=== PATIENT | female | born 1975 | race Caucasian/White ===

== ENCOUNTER 2018-02-14 21:41 | Emergency (ER) | payer SELFPAY ==
[~2018-02-14] VITALS: Ht 170.2 cm; Wt 73.0 kg
[~2018-02-14 21:41] MED LIST: ALBUPOW26; FLUT250M9; LORA-205; METO25TA4; MONT10TA23; RANI25TA; TEMA7.5C11; THEO1CAP3; [UNRECOGNIZED DRUG - OTHER]
[2018-02-14 21:50] VITALS: BP 124/85
[2018-02-14] MEDS ORDERED: ALBUTEROL SULF 2.5 MG/0.5ML(0.5%) NEB SOLN NEB ONE (22:00)
[2018-02-14] MEDS ORDERED: IPRATROPIUM BROM 0.5 MG/2.5ML INH SOL NEB ONE (22:00)
== END 2018-02-14 23:14 | disposition left against medical advice (07) ==
LOC: ER 21:41
DX: J45.909 Unspecified asthma, uncomplicated (principal); Z53.21 Procedure and treatment not carried out due to patient leaving prior to being seen by health care provider
CPT/HCPCS: 94640; 99281; J7611; J7644

== ENCOUNTER 2020-08-30 18:10 | Emergency (ER) | payer SELFPAY ==
[~2020-08-30] VITALS: Ht 170.2 cm; Wt 76.7 kg
[~2020-08-30 18:10] MED LIST changes: +METO25TA36; -METO25TA4
[2020-08-30 19:00] VITALS: BP 128/75
== END 2020-08-30 20:15 | disposition home or self-care (01) ==
LOC: ER 18:10
DX: S20.212A Contusion of left front wall of thorax, initial encounter (principal); J45.909 Unspecified asthma, uncomplicated; I10 Essential (primary) hypertension; Z88.0 Allergy status to penicillin; W10.8XXA Fall (on) (from) other stairs and steps, initial encounter; Y93.89 Activity, other specified; Y92.89 Other specified places as the place of occurrence of the external cause; Y99.8 Other external cause status
CPT/HCPCS: 71046

== ENCOUNTER 2021-03-03 15:48 | Emergency (ER) | payer MEDICAID ==
[~2021-03-03] VITALS: Ht 170.2 cm; Wt 90.7 kg
[2021-03-03 15:49] VITALS: BP 118/74
== END 2021-03-03 23:30 | disposition home or self-care (01) ==
LOC: ER 15:48
DX: S00.03XA Contusion of scalp, initial encounter (principal); R55 Syncope and collapse; X58.XXXA Exposure to other specified factors, initial encounter; Y93.89 Activity, other specified; Y92.89 Other specified places as the place of occurrence of the external cause; Y99.8 Other external cause status
CPT/HCPCS: 70450; 93005

== ENCOUNTER 2021-09-26 05:00 | Emergency (ER) | payer MEDICAID, OTHER ==
[~2021-09-26] VITALS: Ht 170.2 cm; Wt 75.0 kg
[2021-09-26 05:00] VITALS: BP 110/70
[2021-09-26] MEDS ORDERED: IPRATROPIUM BROM 0.5 MG/2.5ML INH SOL NEB ONE ×2 (05:15→07:00)
[2021-09-26] MEDS ORDERED: ALBUTEROL SULF 2.5 MG/0.5ML(0.5%) NEB SOLN NEB ONE ×2 (05:15→07:00)
[2021-09-26] MEDS ORDERED: methylPREDNISolone SOD SUCC 125 MG/2 ML VL IM ONE (07:00)
[2021-09-26] MEDS ORDERED: PRED20TA2 PO (07:42)
[2021-09-26] MEDS ORDERED: ALBU108A5 IN (07:42)
[2021-09-26] MEDS ORDERED: IBUP600T27 PO (07:42)
== END 2021-09-26 07:52 | disposition home or self-care (01) ==
LOC: ER 05:00
DX: S29.011A Strain of muscle and tendon of front wall of thorax, initial encounter (principal); J45.901 Unspecified asthma with (acute) exacerbation; F17.210 Nicotine dependence, cigarettes, uncomplicated; W18.39XA Other fall on same level, initial encounter; Y93.89 Activity, other specified; Y92.89 Other specified places as the place of occurrence of the external cause; Y99.8 Other external cause status
CPT/HCPCS: 71046; 93005; 94640; 96372; 99284; J2930; J7644

== ENCOUNTER 2025-01-13 07:17 | Emergency (ER) | payer MEDICAID, OTHER ==
[~2025-01-13] VITALS: Ht 170.2 cm; Wt 78.2 kg
[~2025-01-13 07:17] MED LIST changes: +ALBU108A5 IN; +IBUP-1454 PO; +PRED20TA2 PO
--- NOTE | 2025-01-13 07:45 | ED.PDOC ---
Psychiatric HPI Comments This is a 50 year-old female who presents to the ED via EMS with a chief complaint of Anxiety. Per EMS, patient is homeless, was [facility] prior to ED arrival. Per EMS, patient initially had a HR in the 200's with SVT. Patient was given normal saline and adenosine en route, HR transferred to [facility]. Patient has a Hx of psychiatric disorders, ADHD and Schizophrenia. There are no further complaints or modifying factors at this time. Time Seen by MD: 07:29 Primary Care Provider: DIONEN Quick Notes: Manager Ems Notes, Medications, Allergies Information Source: Patient, Emergency Med Personnel Mode of Arrival: EMS Duration: Since onset Presents with: Anxiety Associated signs and symptoms: Anxiety Past Medical History PAST MEDICAL HISTORY: Asthma, Schizophrenia Past Medical History (Other): ADHD Surgical History: Denies all surgeries ELECTRICAL INSTRUMENT MAKER History: No Pertinent ELECTRICAL INSTRUMENT MAKER History Family History Family History: Reviewed,noncontributory to illness Social History Smoker: Cigarettes Alcohol: Occasionally Drugs: Marijuana Lives In: Home Constitutional: denies: chills, diaphoresis, fatigue, fever, malaise, sweats, weakness, others EENTM: denies: blurred vision, double vision, ear bleeding, ear discharge, ear drainage, ear pain, ear ringing, eye pain, eye redness, hearing loss, mouth pain, mouth swelling, nasal discharge, nose bleeding, nose congestion, nose pain, photophobia, tearing, throat pain, throat swelling, voice changes, others Respiratory: denies: cough, hemoptysis, orthopnea, SOB at rest, shortness of breath, SOB with excertion, stridor, wheezing, others Cardiovascular: denies: chest pain, dizzy spells, diaphoresis, Dyspnea on exertion, edema, irregular heart beat, left arm pain, lightheadedness, palpitations, PND, syncope, others Gastrointestinal: denies: abdomen distended, abdominal pain, blood streaked bowels, constipated, diarrhea, dysphagia, difficulty swallowing, hematemesis, melena, nausea, poor appetite, poor fluid intake, rectal bleeding, rectal pain, vomiting, others Genitourinary: denies: abnormal vagina bleeding, burning, dyspareunia, dysuria, flank pain, frequency, hematuria, incontinence, pain, , vagina discharge, urgency, others Neurological: denies: dizziness, fainting, headache, left sided numbness, left sided weakness, numbness, paresthesia, pre-existing deficit, right sided numbness, right sided weakness, seizure, speech problems, tingling, tremors, weakness, others Musculoskeletal: denies: back pain, gout, joint pain, joint swelling, muscle pain, muscle stiffness, neck pain, others Integumetry: denies: bruises, change in color, change in hair/nails, dryness, laceration, lesions, lumps, rash, wounds, others Allergic/Immunocompromised: denies: Difficulty Healing, Frequent Infections, Hives, Itching, others Hematologic/Lymphatic: denies: anemia, blood clots, easy bleeding, easy bruising, swollen glands, others Endocrine: denies: excessive hunger, excessive sweating, excessive thirst, excessive urination, flushing, intolerance to cold, intolerance to heat, unexplained weight gain, unexplained weight loss, others Psychiatric: reports: anxiety; denies: bipolar disorder, depression, hopeless, panic disorder, schizophrenia, sleepless, suicidal, others All Other Systems: Reviewed and Negative Physical Exam General Appearance: Moderate Distress HEENT: Normal ENT Inspection, Pharynx Normal, TMs Normal Neck: Full Range of Motion, Non-Tender, Normal, Normal Inspection Respiratory: Chest Non-Tender, Lungs Clear, No Accessory Muscle Use, No Respiratory Distress, Normal Breath Sounds Cardiovascular: No Edema, No JVD, No Murmur, No Gallop, Normal Peripheral Pulses, Regular Rate/Rhythm Breast Exam: Deferred Gastrointestinal: No Organomegaly, Non Tender, No Pulsatile Mass, Normal Bowel Sounds, Soft Genitalia: Deferred Pelvic: Deferred Rectal: Deferred Extremities: No calf tenderness, Normal capillary refill, Normal inspection, Normal range of motion, Non-tender, No pedal edema Musculoskeletal : Apperance: Normal Neurologic: Alert, ssrs developer II-XII nml as Tested, No Motor Deficits, Normal Affect, Normal Mood, No Sensory Deficits Cerebellar Function: Normal Reflexes: Normal Skin: Dry, Normal Color, Warm Peripheral Pulses: 3+ Radial (R), 3+ Radial (L) Lymphatic: No Adenopathy EKG EKG : Pulse Rate (adult): 91 [place]: Normal Cardiac Rhythm: NSR Block: None Hypertrophy: None ST: Normal Was a procedure done? Was a procedure done?: No Psych Differential Dx Psych. Differential Dx: Anxiety, Depression, Schizoprenia X-Ray, Labs, Meds, VS Vital Signs Date Time Temp Pulse Resp B/P (MAP) Pulse Ox O2 Delivery O2 Flow Rate FiO2 01/13/25 09:21 98.4 88 20 123/95 96 98.4 01/13/25 07:45 91 01/13/25 07:30 91 Patient alert. Came in because of a stress reaction. Vitals stable. Answering questions. Prior to coming she had supraventricular tachycardia. Was given adenosine with help. Cardiac rhythm within normal limits. EKG reviewed does not show any acute changes. Patient insists on going home. Denies suicidal or homicidal ideation. No sign of distress. Tolerating diet. Ambulating. No injuries. Watched her for few hours. Explained to the patient. Was told to follow up with her primary care physician. Was told to come back if there is any problem. Time of 1ST Reevaluation: 08:13 Reevaluation 1ST: Improved Patient Education/Counseling: Diagnosis, Treatment Family Education/Counseling: No Family Present Departure 1 Departure Time of Disposition: 10:46 Impression: Primary Impression: Supraventricular tachycardia Additional Impression: Anxiety Disposition: 01 HOME / SELF CARE / HOMELESS Condition: Good Discharged With: Self Critical Care Note Critical Care Time?: Yes (90 min-critical care time only) Stability Stability form required: No Heart Score Heart Score: Heart Score Response (Comments) Value History Slightly Suspicious 0 EKG Normal 0 Age 45-64 1 Risk Factors No known risk factors 0 Troponin N/A 0 Total 1 I personally scribed for JOANNE RHODES MD ([email or web address]) on 01/13/25 at 07:45. Electronically submitted by Eveline Toledo ([facility]). JOANNE RHODES MD Jan 13, 2025 07:45
[2025-01-13 09:21] VITALS: BP 123/95; PULSE 88; RESP 20; TEMP 98.4; O2SAT 96
[2025-01-13] MEDS: LORazepam 0.5 MG TAB ONE (11:14)
[2025-01-13] MEDS: LORazepam 0.5 MG TAB PO ONE (11:14)
--- NOTE | 2025-01-16 07:37 | ECG ---
[facility] Test Date: 2025-01-13 Test Time: 07:30:43 Pat Name: DAHLIA BALDWIN Department: [facility] ED Patient ID: [id number] Room: Gender: F Funding Specialist: NAIMA : 1975 Requested By: JOANNE RHODES Order Number: [id number] Reading MD: Richi Samuel Measurements Intervals [place] Rate: 91 P: 69 MI: 141 QRS: 56 QRSD: 145 T: 46 QT: 369 QTc: 455 Interpretive Statements Sinus rhythm Right bundle branch block Electronically Signed On 01-16-2025 14:59:45 PST by Richi Samuel Please click the below link to view image of tracing.
== END 2025-01-13 11:55 | disposition home or self-care (01) ==
LOC: ER 07:17 → EDUNIT# 07:17 → EDBD 07:17 → ER 11:55
DX: I47.10 Supraventricular tachycardia, unspecified (principal); F41.9 Anxiety disorder, unspecified; Z79.899 Other long term (current) drug therapy
CPT/HCPCS: 93005

== ENCOUNTER 2025-01-26 01:24 | Emergency (ER) | payer MEDICAID ==
[~2025-01-26] VITALS: Ht 167.6 cm; Wt 76.5 kg
[2025-01-26 01:27] VITALS: BP 101/69; PULSE 88; TEMP 97.3
[2025-01-26 02:10] VITALS: RESP 18; O2SAT 94
[2025-01-26] MEDS: ALBUTEROL SULF 2.5 MG/0.5ML(0.5%) NEB SOLN NEB ONE (02:10)
[2025-01-26] MEDS: IPRATROPIUM BROM 0.5 MG/2.5ML INH SOL NEB ONE (02:10)
--- NOTE | 2025-01-26 03:01 | ED.PDOC ---
SOB-HPI HPI Comments PT CAME TO THE ER WITH CC OF ASTHMA ATTCK, PT REPORTS HAVING A COLD X 3DAYS AND STATES TODAY SHE FELT HER THROAT GETTING TIGHT. PT RECENTLY MOVED UP HERE AND DOES NOT HAVE A RESCUE INHALER, PT DOES HAVE AN APPOINTEMNT WITH NEW PCP IN FEB 2025 PT IS A&OX4, RR EVEN AND REGULAR, PT 98% ON RM AIR. PT DENIES ALL OTHER SYMPTOMS. Chief Complaint: Asthma Time Seen by MD: 01:37 Primary Care Provider: DIONNE Reviewed notes: Nurses Notes, Medications, Allergies Information Source: Patient Mode of Arrival: Ambulatory Past Medical History PAST MEDICAL HISTORY: Asthma, Schizophrenia Surgical History: Denies all surgeries SPRING WINDER History: No Pertinent SPRING WINDER History Family History Family History: Reviewed,noncontributory to illness Social History Smoker: Cigarettes Alcohol: Occasionally Drugs: Marijuana Lives In: Home All Other Systems: Reviewed and Negative (SEE HPI) Physical Exam General Appearance: No Apparent Distress, Normal HEENT: Normal ENT Inspection, Pharynx Normal, TMs Normal Neck: Full Range of Motion, Non-Tender Respiratory: Chest Non-Tender, No Accessory Muscle Use, No Respiratory Distress, Wheezing Cardiovascular: No Edema, No JVD, No Murmur, No Gallop, Normal Peripheral Pulses, Regular Rate/Rhythm Breast Exam: Deferred Gastrointestinal: Non Tender, Soft Genitalia: Deferred Pelvic: Deferred Rectal: Deferred Extremities: Normal range of motion Musculoskeletal : Apperance: Normal Neurologic: Alert, lead massage therapist II-XII nml as Tested, No Motor Deficits, Normal Affect, Normal Mood, No Sensory Deficits Cerebellar Function: Normal Reflexes: NOT DONE Skin: Dry, Normal Color, Warm Lymphatic: No Adenopathy Was a procedure done? Was a procedure done?: No Differential Dx Differential Diagnosis: Panic Attack, Pneumonia, URI X-Ray, Labs, Meds, VS Vital Signs Date Time Temp Pulse Resp B/P (MAP) Pulse Ox O2 Delivery O2 Flow Rate FiO2 01/26/25 02:10 18 94 Room Air* 0 21 01/26/25 01:27 97.3 88 18 101/69 97 97.3 X-Ray, Labs, Meds, VS Comment PATIENT GIVEN DUO NEB WITH GOOD RESULTS LUNG SOUNDS CLEAR EQUAL BILATERAL. REFILLED ALBUTEROL SCRIPT TO PHARMACY. STARTED ON STEROIDS. ADVISED TO REST INCREASE P.O. FLUIDS WITH ELECTROLYTES. FOLLOW UP WITH YOUR PCP IN 2-3 DAYS NEEDED. ER RETURN PRECAUTIONS GIVEN PATIENT INDICATES UNDERSTANDING AGREES WITH DISCHARGE PLAN Time of 1ST Reevaluation: 01:37 Reevaluation 1ST: Unchanged Time of 2ND Reevaluation: 03:02 Reevaluation 2ND: Improved Patient Education/Counseling: Diagnosis, Treatment, Need For Follow Up Family Education/Counseling: No Family Present SEPSIS Sepsis Screen Date sepsis recognized/suspect: Jan 26, 2025 Time Sepsis recognized/suspect: 0132 Recent Procedure: No On Antibiotic Therapy: No Respiratory Rate >20: No Heart Rate >90: No Temp<36 C (96.8 F) or >38.3 C: No SBP <90 or MAP <65 mmHG: No New Acute Mental Status Change: No Is the patient on CPAP, BIPAP,: No Physician Orders Med Neb Initial Treatment (01/26/25 01:39) Vital Signs Date Time Temp Pulse Resp B/P (MAP) Pulse Ox O2 Delivery O2 Flow Rate FiO2 01/26/25 02:10 18 94 Room Air* 0 21 01/26/25 01:27 97.3 88 18 101/69 97 97.3 Departure 1 Departure Time of Disposition: 03:00 Impression: Primary Impression: Acute asthma Additional Impression: Anxiety Disposition: 01 HOME / SELF CARE / HOMELESS Condition: Stable e-Prescriptions Azithromycin (Azithromycin) 250 Mg Tab 250 MG PO DAILY MDD 500 for 5 Days, #6 TAB 0 Refills 2 TABLETS ORALLY ON DAY ONE, THEN 1 TABLET ORALLY DAILY FOR 4 DAYS Prov: JOSE CHASE 01/26/25 Albuterol Sulfate (Albuterol Sulfate Hfa) 108 Mcg/Act Aer 108 MCG IN TID, #90 AER Prov: JOSE CHASE 01/26/25 Discharged With: Self Critical Care Note Critical Care Time?: No Stability Stability form required: No Heart Score Heart Score: Heart Score Response (Comments) Value History N/A 0 EKG N/A 0 Age N/A 0 Risk Factors N/A 0 Troponin N/A 0 Total 0 JOSE CHASE Jan 26, 2025 03:01
[2025-01-26] MEDS ORDERED: ALBU108A5 IN (03:03)
[2025-01-26] MEDS ORDERED: AZIT-43 PO (03:03)
[2025-01-26] MEDS: LORazepam 0.5 MG TAB PO ONE (03:11)
== END 2025-01-26 03:13 | disposition home or self-care (01) ==
LOC: ER 01:24
DX: J45.909 Unspecified asthma, uncomplicated (principal); F41.9 Anxiety disorder, unspecified; F10.90 Alcohol use, unspecified, uncomplicated; F17.210 Nicotine dependence, cigarettes, uncomplicated; F12.90 Cannabis use, unspecified, uncomplicated; F20.9 Schizophrenia, unspecified
CPT/HCPCS: 94640; 96372; 99283; J1100